=== PATIENT | female | born 1960 | race African-American/Black ===

== ENCOUNTER → 2016-12-14 | Outpatient (CLI) | payer BC, OTHER ==
--- NOTE | 2016-12-14 19:01 | WOMENS IMAGING REPORT ---
EXAM DESCRIPTION: 3D DX MAMMO LEFT UNILAT; U/S BREAST UNILAT LIMITED COMPLETED DATE/TIME: 12/14/2016 1:10 pm; 12/14/2016 1:46 pm REASON FOR STUDY: LEFT BREAST PAIN; LT BREAST PAIN N64.4 COMPARISON: Multiple mammograms since 2008 Left breast ultrasound 12/24/2014, Left breast ultrasound 10/09/2013 TECHNIQUE: Standard craniocaudal, 90 mediolateral and mediolateral oblique images of the breast rec orded using digital acquisition and breast tomosynthesis. Left breast ultrasound was also performed LIMITATIONS: None. FINDINGS: BREAST: Left MASSES: Stable mammographic nodules are present in the left central retroareolar region and far later al upper outer quadrant. At the 12 o'clock position in the area of breast pain, no discrete masses a re identified CALCIFICATIONS: No new or suspicious calcifications. ARCHITECTURAL DISTORTION: None. DEVELOPING DENSITY: None. ASYMMETRY: None noted. OTHER: No other significant findings. Read with the assistance of CAD. .[facility] - R2 Cenova Version 1.3 .[facility] - R2 Cenova Version 1.3 .[facility] - R2 Cenova Version 2.4 .[facility] [place]2 Cenova Version 2.4 .[facility] - R2 Marketing Manager [employer] Communications Version 9.2 Left breast ultrasound: Ultrasound of the area of left breast pain 12 o'clock position was performed. No masses. No cysts. No focal findings. Benign breast parenchymal cysts are present. In the left central retroareolar region, a 10 mm diamet er simple cyst is present. In the left breast 2 to 3 o'clock position far upper outer quadrant, a 10 mm simple cyst is present. IMPRESSION: No mammographic or sonographic evidence for malignancy left breast. BREAST DENSITY: b. There are scattered areas of fibroglandular density. BIRAD: 2 Benign findings. RECOMMENDATION: RECOMMENDED FOLLOW UP: Please continue yearly bilateral screening tomosynthesis in M arch 2018. SPECIFIC INTERVENTION/IMAGING/CONSULTATION RECOMMENDED:No additional intervention/ imaging/consultati on needed at this time. COMMUNICATION:Patient notified by letter COMMENT: The patient has been notified of the results by letter per SA requirements. Additional no tification policies are in place for contacting patient with suspicious or incomplete findings. Quality ID #225: The [employer] recommends an annual screening mammogram for women aged 40 years or over. This facility utilizes a reminder system to ensure that all patients receive reminder letters, and/or direct phone calls for appointments. This includes reminders for routine scr eening mammograms, diagnostic mammograms, or other Breast Imaging Interventions when appropriate. Th is patient will be placed in the appropriate reminder system. The [place] [employer] [employer] (ACR) has developed recommendations for screening MRI of the breast s in certain patient populations, to be used in conjunction with mammography. Breast MRI surveillanc e may be appropriate for women with more than 20% lifetime risk of developing breast cancer as deter mined by genetic testing, significant family history of the disease, or history of mantle radiation f or Hodgkins Disease. ACR Practice Guidelines 2008. DBT Technology DBT is a type of tomographic mammography. With conventional mammography, overlapping breast tissue ma y make lesions difficult to detect, even with good compression. DBT uses an x-ray tube that rotates a round the breast, taking images at different angles. These images are then combined to create thin sl ices of the breast that the radiologist can view as a 3D reconstruction. The [employer] unit can perform full-field digital mammograms (2D imaging); or DBT (3D imaging); or both, in a combination mode that quickly performs both the mammogram and the tomosynthesis scan while the breast is still compressed. PQRS 6045F: Fluoroscopic imaging is not utilized for breast tomosynthesis. TECHNICAL DOCUMENTATION: FINDING NUMBER: (1) ASSESSMENT: (1) JOB ID: [id number] [employer]- All Rights Reserved
--- NOTE | 2016-12-14 19:01 | WOMENS IMAGING REPORT ---
EXAM DESCRIPTION: 3D DX MAMMO LEFT UNILAT; U/S BREAST UNILAT LIMITED COMPLETED DATE/TIME: 12/14/2016 1:10 pm; 12/14/2016 1:46 pm REASON FOR STUDY: LEFT BREAST PAIN; LT BREAST PAIN N64.4 COMPARISON: Multiple mammograms since 2008 Left breast ultrasound 12/24/2014, Left breast ultrasound 10/09/2013 TECHNIQUE: Standard craniocaudal, 90 mediolateral and mediolateral oblique images of the breast rec orded using digital acquisition and breast tomosynthesis. Left breast ultrasound was also performed LIMITATIONS: None. FINDINGS: BREAST: Left MASSES: Stable mammographic nodules are present in the left central retroareolar region and far later al upper outer quadrant. At the 12 o'clock position in the area of breast pain, no discrete masses a re identified CALCIFICATIONS: No new or suspicious calcifications. ARCHITECTURAL DISTORTION: None. DEVELOPING DENSITY: None. ASYMMETRY: None noted. OTHER: No other significant findings. Read with the assistance of CAD. .[facility] - R2 Cenova Version 1.3 .[facility] - R2 Cenova Version 1.3 .[facility] - R2 Cenova Version 2.4 .[facility] [place] R2 Cenova Version 2.4 .[facility] - R2 Mainframe Developer Version 9.2 Left breast ultrasound: Ultrasound of the area of left breast pain 12 o'clock position was performed. No masses. No cysts. No focal findings. Benign breast parenchymal cysts are present. In the left central retroareolar region, a 10 mm diamet er simple cyst is present. In the left breast 2 to 3 o'clock position far upper outer quadrant, a 10 mm simple cyst is present. IMPRESSION: No mammographic or sonographic evidence for malignancy left breast. BREAST DENSITY: b. There are scattered areas of fibroglandular density. BIRAD: 2 Benign findings. RECOMMENDATION: RECOMMENDED FOLLOW UP: Please continue yearly bilateral screening tomosynthesis in M arch 2018. SPECIFIC INTERVENTION/IMAGING/CONSULTATION RECOMMENDED:No additional intervention/ imaging/consultati on needed at this time. COMMUNICATION:Patient notified by letter COMMENT: The patient has been notified of the results by letter per SA requirements. Additional no tification policies are in place for contacting patient with suspicious or incomplete findings. Quality ID #225: The [employer] recommends an annual screening mammogram for women aged 40 years or over. This facility utilizes a reminder system to ensure that all patients receive reminder letters, and/or direct phone calls for appointments. This includes reminders for routine scr eening mammograms, diagnostic mammograms, or other Breast Imaging Interventions when appropriate. Th is patient will be placed in the appropriate reminder system. The [employer] (ACR) has developed recommendations for screening MRI of the breast s in certain patient populations, to be used in conjunction with mammography. Breast MRI surveillanc e may be appropriate for women with more than 20% lifetime risk of developing breast cancer as deter mined by genetic testing, significant family history of the disease, or history of mantle radiation f or Hodgkins Disease. ACR Practice Guidelines 2008. DBT Technology DBT is a type of tomographic mammography. With conventional mammography, overlapping breast tissue ma y make lesions difficult to detect, even with good compression. DBT uses an x-ray tube that rotates a round the breast, taking images at different angles. These images are then combined to create thin sl ices of the breast that the radiologist can view as a 3D reconstruction. The [facility] unit can perform full-field digital mammograms (2D imaging); or DBT (3D imaging); or both, in a combination mode that quickly performs both the mammogram and the tomosynthesis scan while the breast is still compressed. PQRS 6045F: Fluoroscopic imaging is not utilized for breast tomosynthesis. TECHNICAL DOCUMENTATION: FINDING NUMBER: (1) ASSESSMENT: (1) JOB ID: [id number] [employer]- All Rights Reserved
== END ==
LOC: WI 12:51
PROVIDERS: ATTEND Obstetrics & Gynecology Gynecology
DX: N64.4 Mastodynia (principal)
CPT/HCPCS: 77061; 76642; G0206

== ENCOUNTER → 2017-09-19 | Outpatient (CLI) | payer BC, OTHER ==
--- NOTE | 2017-09-20 18:27 | WOMENS IMAGING REPORT ---
EXAM DESCRIPTION: BILAT SCREENING MAMMO W/CAD COMPLETED DATE/TIME: 09/19/2017 3:46 pm REASON FOR STUDY: ROUTINE SCREENING/Z12.31 Z12.31 ENCNTR SCREEN MAMMOGRAM FOR MALIGNANT NEOPLASM OF KRISTEL COMPARISON: 2013 to 2016 TECHNIQUE: Standard craniocaudal and mediolateral oblique views of each breast recorded using Lil[employer]coma l acquisition. LIMITATIONS: None. FINDINGS: No masses, calcifications or architectural distortion. No areas of suspicion. Read with the assistance of CAD. .[facility] - R2 Cenova Version 1.3 .[facility] Imaging - R2 Cenova Version 1.3 .[facility] - R2 Cenova Version 2.4 .[facility] [place] Cenova Version 2.4 .[facility] - R2 Metal Fitters And Machinists Version 9.2 IMPRESSION: NORMAL MAMMOGRAM. BIRADS 1. BREAST DENSITY: b. There are scattered areas of fibroglandular density. BIRAD: 1 NEGATIVE RECOMMENDATION: ROUTINE SCREENING COMMENT: The patient has been notified of the results by letter per SA requirements. Additional no tification policies are in place for contacting patient with suspicious or incomplete findings. Quality ID #225: The [place] [employer] recommends an annual screening mammogram for women aged 40 years or over. This facility utilizes a reminder system to ensure that all patients receive reminder letters, and/or direct phone calls for appointments. This includes reminders for routine scr eening mammograms, diagnostic mammograms, or other Breast Imaging Interventions when appropriate. Th is patient will be placed in the appropriate reminder system. The [place] [employer] (ACR) has developed recommendations for screening MRI of the breast s in certain patient populations, to be used in conjunction with mammography. Breast MRI surveillanc e may be appropriate for women with more than 20% lifetime risk of developing breast cancer as deter mined by genetic testing, significant family history of the disease, or history of mantle radiation f or Hodgkins Disease. ACR Practice Guidelines 2008. TECHNICAL DOCUMENTATION: FINDING NUMBER: (1) ASSESSMENT: (1) JOB ID: [id number] [employer]- All Rights Reserved Reading location - IP/workstation name: [email or web address]
== END ==
LOC: WI 15:29
PROVIDERS: ATTEND Obstetrics & Gynecology Gynecology
DX: Z12.31 Encounter for screening mammogram for malignant neoplasm of breast (principal)
CPT/HCPCS: 77067

== ENCOUNTER 2018-08-16 14:42 | Emergency (ER) | payer BC, OTHER ==
--- NOTE | 2018-08-16 15:45 | ER Document Report ---
HPI - HPI Time Seen by Provider: 08/16/18 15:01 Pain Level: 5 Context: Patient is a 57-year-old female who presents the emergency department with right thigh pain. She states that this started this morning. The pain is on the lateral aspect of her thigh. Denies any injury. Denies any shortness of breath, difficulty breathing. States that she woke up with this. Denies any new activity. Denies any recent travel. Past medical history includes hypertension. She currently takes lisinopril. About 3 years ago she had a carbuncle on her left upper back, which was removed. - CONSTITUTIONAL Constitutional: DENIES: Fever, Chills - EENT EENT: DENIES: Sore Throat, Ear Pain - NEURO Neurology: DENIES: Headache - CARDIOVASCULAR Cardiovascular: DENIES: Chest pain - RESPIRATORY Respiratory: DENIES: Trouble Breathing, Coughing - GASTROINTESTINAL Gastrointestinal: DENIES: Abdominal Pain - REPRODUCTIVE Reproductive: DENIES: : - MUSCULOSKELETAL Musculoskeletal: REPORTS: Extremity pain - R leg. DENIES: Back Pain, Neck Pain, Swelling - DERM Skin Color: Normal Skin Problems: None Past Medical History - General Information source: Patient, Relative - Social History Smoking Status: Never Smoker Family History: Reviewed & Not Pertinent Patient has suicidal ideation: No Patient has homicidal ideation: No - Past Medical History Cardiac Medical History: Reports: Hx Hypertension Denies: Hx Coronary Artery Disease, Hx Heart Attack Pulmonary Medical History: Denies: Hx Asthma, Hx Bronchitis, Hx COPD, Hx Pneumonia Neurological Medical History: Denies: Hx Cerebrovascular Accident, Hx Seizures Renal/ Medical History: Denies: Hx Peritoneal Dialysis Musculoskeletal Medical History: Denies Hx Arthritis Past Surgical History: Reports: Hx Hysterectomy, Hx Tubal Ligation - Immunizations Hx Diphtheria, Pertussis, Tetanus Vaccination: No - unsure Vertical Provider Document - CONSTITUTIONAL Agree With Documented VS: Yes Exam Limitations: No Limitations General Appearance: No Apparent Distress - INFECTION CONTROL TRAVEL OUTSIDE OF THE [place] IN LAST 30 DAYS: No - HEENT HEENT: Atraumatic, Normocephalic, PERRLA - NECK Neck: Normal Inspection - RESPIRATORY Respiratory: Breath Sounds Normal, No Respiratory Distress - CARDIOVASCULAR Cardiovascular: Regular Rate, Regular Rhythm - GI/ABDOMEN Gastrointestinal: Abdomen Soft - REPRODUCTIVE Female Genitalia: Normal Inspection - BACK Back: Normal Inspection - MUSCULOSKELETAL/EXTREMETIES Musculoskeletal/Extremeties: FROM, Tender - Right lateral thigh, No Edema - NEURO Level of Consciousness: Awake, Alert, Appropriate Motor/Sensory: No Motor Deficit, No Sensory Deficit - DERM Integumentary: Warm, Dry, No Rash Course - Re-evaluation Re-evalutation: 08/16/18 18:31 Patient's venous Doppler study is unofficially negative per software validation technician. She will be treated with Decadron and Toradol for bursitis. Patient's states that the patient has been riding her bike, and she has not rode her bike for long time. She also be sent home with Toradol. She will follow-up with her primary care provider in regards to this visit. - Vital Signs Vital signs: Temp Pulse Resp BP Pulse Ox 98.3 F 83 18 159/95 H 98 08/16/18 14:47 08/16/18 14:47 08/16/18 14:47 08/16/18 14:47 08/16/18 14:47 Discharge - Discharge Clinical Impression: Right leg pain Condition: Stable Disposition: HOME, SELF-CARE Additional Instructions: You are seen today in the emergency department for right leg pain. You do not have a blood clot. Your x-ray is normal. He received a dose of Decadron and Toradol here in the emergency department. You were also going home with Toradol. You can take 1 tablet every 6 hours as needed for your pain. You can also take Tylenol 1000 mg every 6 hours with your Toradol. Please follow-up with your primary care provider. You may also look into physical therapy to help with strengthening her muscles. If you have worsening symptoms, are unable to walk, or have any symptoms that are worrisome to you, please return to the emergency department. Prescriptions: Ketorolac Tromethamine [Toradol 10 mg Tablet] 10 mg PO Q6HP PRN #20 tablet PRN Reason: Forms: Return to Work Referrals: LEONOR ESTEBAN MD [NO LOCAL MD] - Follow up in 1 week
--- NOTE | 2018-08-16 16:10 | RADIOLOGY REPORT (SQ) ---
EXAM DESCRIPTION: FEMUR RIGHT COMPLETED DATE/TIME: 08/16/2018 3:42 pm REASON FOR STUDY: right upper leg pain COMPARISON: None. NUMBER OF VIEWS: Two views. TECHNIQUE: Two radiographic images acquired of the right femur to include hip and knee in at least o ne projection. LIMITATIONS: None. FINDINGS: MINERALIZATION: Normal. BONES: No acute fracture. No worrisome bone lesions. SOFT TISSUES: No obvious swelling or foreign body. OTHER: No other significant finding. IMPRESSION: NEGATIVE STUDY OF THE RIGHT FEMUR. NO RADIOGRAPHIC EVIDENCE OF ACUTE INJURY. TECHNICAL DOCUMENTATION: JOB ID: [id number] [employer]- All Rights Reserved Reading location - IP/workstation name: [email or web address]
[2018-08-16] MEDS ORDERED: KETOROLAC TROMETHAMINE 60 MG/2 ML SDV IM ONE (18:25)
[2018-08-16] MEDS ORDERED: DEXAMETHASONE SOD PHOS INJ 10 MG/1 ML VIAL IM ONE (18:25)
[2018-08-16 18:51] VITALS: BP 122/80
--- NOTE | 2018-08-16 19:01 | RADIOLOGY REPORT (SQ) ---
EXAM DESCRIPTION: VENOUS UNILATERAL LOWER COMPLETED DATE/TIME: 08/16/2018 6:52 pm REASON FOR STUDY: right leg pain COMPARISON: None. TECHNIQUE: Dynamic and static tee scale and color images acquired of the right leg venous system. S elected spectral images acquired with additional compression and augmentation maneuvers. The contrala teral common femoral vein and saphenofemoral junction were also imaged. Images stored on PACS. LIMITATIONS: None. FINDINGS: COMMON FEMORAL: Normal phasicity, compression and augmentation. No visualized echogenic ma terial on ete scale. No defects on color images. FEMORAL: Normal compression and augmentation. No visualized echogenic material on tee scale. No defe cts on color images. POPLITEAL: Normal compression, augmentation. No visualized echogenic material on tee scale. No defec ts on color images. CALF VESSELS: Normal compression, augmentation. No visualized echogenic material on tee scale. No de fects on color images. GSV and SSV: Normal compression, augmentation. No visualized echogenic material on tee scale. No def ects on color images. ANY DEEP VENOUS INSUFFICIENCY: Not evaluated. ANY EVIDENCE OF POPLITEAL CYST: No. OTHER: No other significant finding. CONTRALATERAL COMMON FEMORAL VEIN AND SAPHENOFEMORAL JUNCTION: Normal phasicity, compression and augmentation. No visualized echogenic material on tee scale. No de fects on color images. IMPRESSION: NO EVIDENCE DVT OR SVT IN THE RIGHT LEG. TECHNICAL DOCUMENTATION: JOB ID: [id number] [email or web address]- All Rights Reserved Reading location - IP/workstation name: [email or web address]
== END 2018-08-16 18:51 | disposition home or self-care (01) ==
LOC: ER 14:42
DX: M79.651 Pain in right thigh (principal); I10 Essential (primary) hypertension; Z90.710 Acquired absence of both cervix and uterus
CPT/HCPCS: 99284; 96372; 93971; 73552; J1885; J1100

== ENCOUNTER → 2019-05-20 | Outpatient (CLI) | payer BC, OTHER ==
--- NOTE | 2019-05-20 13:54 | WOMENS IMAGING REPORT ---
EXAM DESCRIPTION: LEFT DIAGNOSTIC MAMMO W/CAD; U/S BREAST UNILATERAL, COMPL COMPLETED DATE/TIME: 05/20/2019 11:41 am; 05/20/2019 12:10 pm REASON FOR STUDY: D48.62 NEOPLASM OF UNCERTAIN BEHAVIOR OF LEFT BREAST; LT BREAST D48.62 D48.62 [place] PLASM OF UNCERTAIN BEHAVIOR OF LEFT BREAST COMPARISON: 09/19/2017, 12/14/2016, 05/27/2016, 12/24/2014, 10/04/2013 EXAM PARAMETERS: Standard craniocaudal and mediolateral oblique images of the left breast recorded w ith digital acquisition. Left breast ultrasound Read with the assistance of CAD. .[facility] - R2 Electric Stove Mechanic Version 9.2 LIMITATIONS: None. FINDINGS: BREAST LATERALITY: Left MASSES: There is a new round mass with partially obscured borders at the 12 o'clock position 3- 4 cm from the nipple, middle depth. Additional round masses in the left breast are stable. CALCIFICATIONS: No new or suspicious calcifications. ARCHITECTURAL DISTORTION: None. ASYMMETRY: None noted. OTHER: No other significant findings. The patient was taken ultrasound for further evaluation of the new left breast mass in the area of pa in in the left breast. At the 12 o'clock position, 3-4 cm from the nipple, there is a hypoechoic 7 x 8 x 6 mm cyst with peripheral hypoechoic margins. No internal septations or debris. There is some posterior acoustic enhancement. Additional benign cysts are seen at the 3 o'clock position. No abno rmality is seen in the medial left breast in the area of pain. The left axilla was also scanned demo nstrate normal appearing lymph nodes. There is no subcutaneous mass, skin thickening, or area of abn ormal shadowing. IMPRESSION: Mildly complex cyst in the left breast is probably benign. A follow-up diagnostic mammo gram and left breast ultrasound in 6 months is recommended to confirm stability or resolution. BREAST DENSITY: b. There are scattered areas of fibroglandular density. BIRAD: ASSESSMENT: 3 Probably benign finding. Initial short-interval follow-up suggested. RECOMMENDATION: RECOMMENDED FOLLOW UP: Birads 3: The patient will return in 6 months for follow-up i leonela. SPECIFIC INTERVENTION/IMAGING/CONSULTATION RECOMMENDED:No additional intervention/ imaging/consultati on needed at this time. COMMUNICATION:The imaging findings were discussed with the patient. She will receive a letter for her accelerated follow-up. COMMENT: The patient has been notified of the results by letter per [facility] [place] requirements. Additional no tification policies are in place for contacting patient with suspicious or incomplete findings. Quality ID #225: The [employer] recommends an annual screening mammogram for women aged 40 years or over. This facility utilizes a reminder system to ensure that all patients receive reminder letters, and/or direct phone calls for appointments. This includes reminders for routine scr eening mammograms, diagnostic mammograms, or other Breast Imaging Interventions when appropriate. Th is patient will be placed in the appropriate reminder system. TECHNICAL DOCUMENTATION: FINDING NUMBER: (1) ASSESSMENT: (1) JOB ID: [id number] 2010 [employer]- All Rights Reserved Reading location - IP/workstation name: [email or web address]
== END ==
LOC: WI 12:17
PROVIDERS: ATTEND Physician Assistant
DX: N60.02 Solitary cyst of left breast (principal)
CPT/HCPCS: 76641; 77065

== ENCOUNTER → 2019-11-21 | Outpatient (CLI) | payer BC, OTHER ==
--- NOTE | 2019-11-21 08:57 | WOMENS IMAGING REPORT ---
EXAM DESCRIPTION: 3D DX MAMMO LEFT UNILAT; U/S BREAST UNILATERAL, COMPL IMAGES COMPLETED DATE/TIME: 11/21/2019 8:04 am; 11/21/2019 8:30 am REASON FOR STUDY: D48.62 NEOPLASM OF UNCERTAIN BEHAVIOR OF LEFT BREAST; LT BREAST D48.62 D48.62 [place] PLASM OF UNCERTAIN BEHAVIOR OF LEFT BREAST COMPARISON: 05/20/2019 EXAM PARAMETERS: Standard craniocaudal and mediolateral oblique images of the breast recorded using digital acquisition and breast tomosynthesis. True lateral, exaggerated CC views. Read with the assistance of CAD. .[facility] - R2 Chemical Equipment Repairer Version 9.2 LIMITATIONS: None. FINDINGS: BREAST LATERALITY: left MASSES: Previously described mass at 3 o'clock about 3 cm deep to the nipple is less conspicuous comp ared to the prior mammographically. CALCIFICATIONS: No new or suspicious calcifications. ARCHITECTURAL DISTORTION: None. ASYMMETRY: None noted. OTHER: No other significant findings. Ultrasound demonstrates benign cysts. Ultrasound of the axilla demonstrates physiologic lymph node. IMPRESSION: Benign findings. BREAST DENSITY: b. There are scattered areas of fibroglandular density. BIRAD: ASSESSMENT: 2 Benign findings. RECOMMENDATION: RECOMMENDED FOLLOW UP: Birads 1 or 2: The patient should resume routine screening . SPECIFIC INTERVENTION/IMAGING/CONSULTATION RECOMMENDED:No additional intervention/ imaging/consultati on needed at this time. COMMUNICATION:The imaging findings were not discussed with the patient. Her referring provider has be en notified of the findings. COMMENT: The patient has been notified of the results by letter per SA requirements. Additional no tification policies are in place for contacting patient with suspicious or incomplete findings. Quality ID #225: The [employer] recommends an annual screening mammogram for women aged 40 years or over. This facility utilizes a reminder system to ensure that all patients receive reminder letters, and/or direct phone calls for appointments. This includes reminders for routine scr eening mammograms, diagnostic mammograms, or other Breast Imaging Interventions when appropriate. Th is patient will be placed in the appropriate reminder system. TECHNICAL DOCUMENTATION: FINDING NUMBER: (1) ASSESSMENT: (1) JOB ID: [id number] 2010 [employer]- All Rights Reserved Reading location - IP/workstation name: [email or web address]
--- NOTE | 2019-11-21 08:57 | WOMENS IMAGING REPORT ---
EXAM DESCRIPTION: 3D DX MAMMO LEFT UNILAT; U/S BREAST UNILATERAL, COMPL IMAGES COMPLETED DATE/TIME: 11/21/2019 8:04 am; 11/21/2019 8:30 am REASON FOR STUDY: D48.62 NEOPLASM OF UNCERTAIN BEHAVIOR OF LEFT BREAST; LT BREAST D48.62 D48.62 [place] PLASM OF UNCERTAIN BEHAVIOR OF LEFT BREAST COMPARISON: 05/20/2019 EXAM PARAMETERS: Standard craniocaudal and mediolateral oblique images of the breast recorded using digital acquisition and breast tomosynthesis. True lateral, exaggerated CC views. Read with the assistance of CAD. .[facility] - R2 [employer] Hand Version 9.2 LIMITATIONS: None. FINDINGS: BREAST LATERALITY: left MASSES: Previously described mass at 3 o'clock about 3 cm deep to the nipple is less conspicuous comp ared to the prior mammographically. CALCIFICATIONS: No new or suspicious calcifications. ARCHITECTURAL DISTORTION: None. ASYMMETRY: None noted. OTHER: No other significant findings. Ultrasound demonstrates benign cysts. Ultrasound of the axilla demonstrates physiologic lymph node. IMPRESSION: Benign findings. BREAST DENSITY: b. There are scattered areas of fibroglandular density. BIRAD: ASSESSMENT: 2 Benign findings. RECOMMENDATION: RECOMMENDED FOLLOW UP: Birads 1 or 2: The patient should resume routine screening . SPECIFIC INTERVENTION/IMAGING/CONSULTATION RECOMMENDED:No additional intervention/ imaging/consultati on needed at this time. COMMUNICATION:The imaging findings were not discussed with the patient. Her referring provider has be en notified of the findings. COMMENT: The patient has been notified of the results by letter per [place] requirements. Additional no tification policies are in place for contacting patient with suspicious or incomplete findings. Quality ID #[id number]: The [employer] recommends an annual screening mammogram for women aged 40 years or over. This facility utilizes a reminder system to ensure that all patients receive reminder letters, and/or direct phone calls for appointments. This includes reminders for routine scr eening mammograms, diagnostic mammograms, or other Breast Imaging Interventions when appropriate. Th is patient will be placed in the appropriate reminder system. TECHNICAL DOCUMENTATION: FINDING NUMBER: (1) ASSESSMENT: (1) JOB ID: [id number] 2010 [employer]- All Rights Reserved Reading location - IP/workstation name: [email or web address]
== END ==
LOC: WI 07:40
PROVIDERS: ATTEND Physician Assistant
DX: D48.62 Neoplasm of uncertain behavior of left breast (principal)
CPT/HCPCS: 76641; 77065